=== PATIENT | male | born 1995 | race Caucasian/White ===

== ENCOUNTER 2020-11-20 16:21 | Emergency (ER) | payer SELFPAY ==
[~2020-11-20] VITALS: Ht 182.9 cm; Wt 61.2 kg
[2020-11-20 16:26] VITALS: BP 137/88
--- NOTE | 2020-11-20 16:31 | NUR ---
JARRETT AYALA EVALUATING PT IN CHAIR C
[2020-11-20] MEDS ORDERED: LIDOCAINE MPF 1% 10 MG/ML VIAL INJ ONE (16:55)
--- NOTE | 2020-11-20 17:02 | NUR ---
25 Y/O MALE C/O ABSCESS X 2 MONTHS ON TOP OF HEAD. PT STATES IT HAS GOTTEN BIGGER AND NOW HE IS LOSING HAIR AT THE SITE. PT DENIES PAIN. DENIES N/D/FEVER. SITE IS ON TOP OF HEAD ON THE RIGHT SIDE WITH BALD PATCH AROUND AND SWOLLEN. PT A/O X4 WITH EVEN AND UNLABORED RESPIRATIONS. PMH - DENIES NKDA
--- NOTE | 2020-11-20 17:04 | NUR ---
JARRETT AYALA AT BEDSIDE FOR I&D
[2020-11-20] MEDS ORDERED: CEPH-588 PO (17:20)
[2020-11-20] MEDS ORDERED: NAPR-54 PO (17:20)
--- NOTE | 2020-11-20 17:40 | NUR ---
Patient discharged with v/s stable. Written and verbal after care instructions ABOUT MEDICATION AND SKIN ABSCESS given and explained. Patient alert, oriented and verbalized understanding of instructions. Ambulatory with steady gait. All questions addressed prior to discharge. ID band removed. Patient advised to follow up with PMD. Rx of KEFLEX AND NAPROXEN given. Patient educated on indication of medication including possible reaction and side effects. Opportunity to ask questions provided and answered.
== END 2020-11-20 17:40 | disposition home or self-care (01) ==
LOC: MED 16:21
DX: L02.811 Cutaneous abscess of head [any part, except face] (principal); Z79.899 Other long term (current) drug therapy
CPT/HCPCS: 10060; 99283; J2001